=== PATIENT | male | born 1945 | race Caucasian/White ===

== ENCOUNTER → 2020-11-08 12:53 | Outpatient (BNVA) | payer OTHER, SELFPAY | PROVIDERS: PCP Internal Medicine; Visit Provider Urology | DX: R33.9 Retention of urine, unspecified (principal); N40.0 Benign prostatic hyperplasia without lower urinary tract symptoms | CPT/HCPCS: 51798; 81002; 99212 ==

== ENCOUNTER 2021-04-16 13:44 | Outpatient (REF) | payer OTHER, SELFPAY ==
--- NOTE | ~2021-04-16 | US_ITS ---
EXAMINATION: US EXTRACRANIAL CAROTID DUPLEX, BILATERAL CLINICAL INFORMATION: Bilateral carotid bruit. COMPARISON: Carotid ultrasound 11/24/2019 TECHNIQUE: Real-time ultrasound and Doppler techniques (integrating B-mode 2-D vascular images, Doppler spectral analysis and color-flow Doppler imaging) were utilized to interrogate the extracranial carotid arteries, the vertebral arteries and proximal subclavian arteries bilaterally. The degree of stenosis is determined by criteria similar to NASCET. FINDINGS: Right Side: 1. There is echogenic atherosclerotic plaque seen in the bifurcation/proximal ICA region. 2. The common carotid artery PSV proximally is 73 cm/s and distally 66 cm/s. 3. The proximal internal carotid artery velocities are 185 cm/s systolic and 67 cm/s diastolic. 4. The proximal external carotid artery PSV is 118 cm/s. 5. The vertebral artery shows 83 flow. 6. The subclavian artery waveforms are normal. Left Side: 1. There is echogenic atherosclerotic plaque seen in the bifurcation/proximal ICA region. 2. The common carotid artery PSV proximally is 105 cm/s and distally 99 cm/s. 3. The proximal internal carotid artery velocities are 90 cm/s systolic and 26 cm/s diastolic. 4. The proximal external carotid artery PSV is 78 cm/s. 5. The vertebral artery shows antegrade flow. 6. The subclavian artery waveforms are normal. US/US carotid duplex BI IMPRESSION: 1. RIGHT: Moderate, hemodynamically significant stenosis of the proximal right internal carotid artery corresponding to a 50-79% stenosis by velocity criteria. 2. LEFT: Minimal, non-hemodynamically significant stenosis of the proximal left internal carotid artery corresponding to a 0-49% stenosis by velocity criteria. 3. There is no change in the category severity of disease when compared to the previous study dated 11/24/2019.
== END 2021-04-16 13:45 | disposition home or self-care (01) ==
LOC: HO.US 13:44
PROVIDERS: Visit Provider Surgery Vascular Surgery
DX: I63.233 Cerebral infarction due to unspecified occlusion or stenosis of bilateral carotid arteries (principal)
CPT/HCPCS: 93880

== ENCOUNTER → 2021-04-24 12:59 | Outpatient (BNVA) | payer OTHER, SELFPAY | PROVIDERS: PCP Internal Medicine; Visit Provider Surgery Vascular Surgery | DX: I65.23 Occlusion and stenosis of bilateral carotid arteries (principal); I73.9 Peripheral vascular disease, unspecified | CPT/HCPCS: 99212 ==

== ENCOUNTER 2021-04-26 16:21 | Outpatient (REF) | payer OTHER, SELFPAY ==
--- NOTE | ~2021-04-26 | MR_ITS ---
EXAMINATION: MR BRAIN WITHOUT CONTRAST CLINICAL INFORMATION: Parkinson's disease. Headaches. Numbness in feet. COMPARISON: None. TECHNIQUE: Multiplanar, multisequence imaging of the brain was performed without contrast. FINDINGS: No diffusion abnormalities are identified to suggest an acute infarct. The ventricles are normal in size. No mass effect or midline shift is seen. Minimal scattered white matter signal changes noted. No extra-axial fluid collections are seen. The brainstem is normal. Small lacunar infarct in the left cerebellar hemisphere. The gradient refocused acquisition is normal. Mild generalized parenchymal volume loss noted. The craniovertebral junction, marrow signal, and midline structures are normal. The major intracranial flow voids at the level of the enterprise of [place] are preserved. The dural venous sinus flow voids are maintained. Fluid present in the mastoid air cells bilaterally and in the left middle ear cavity. The nasopharyngeal soft tissues appear normal. There is mild patchy mucosal thickening in the maxillary ethmoid sinuses. MR/MR head/brain wo con IMPRESSION: No acute process. Very mild scattered white matter signal changes which may be due to chronic microangiopathy. Mild generalized parenchymal volume loss.
== END 2021-04-26 16:22 | disposition home or self-care (01) ==
LOC: HO.MRI 16:21
PROVIDERS: Visit Provider Psychiatry & Neurology Neurology
DX: G20 Parkinson's disease (principal)
CPT/HCPCS: 70551

== ENCOUNTER 2021-06-11 13:58 | Outpatient (REF) | payer OTHER, SELFPAY ==
--- NOTE | ~2021-06-11 | US_ITS ---
EXAMINATION: ANKLE-BRACHIAL INDICES SINGLE LEVEL PULSE VOLUME RECORDING ARTERIAL DUPLEX BILATERAL LEGS CLINICAL INFORMATION: Peripheral vascular disease COMPARISON: 03/22/2020. TECHNIQUE: Ankle-brachial indices and PVR at the ankle were obtained. Duplex Doppler of the bilateral lower extremity arterial systems was performed. FINDINGS: RIGHT: Ankle-brachial index: 0.81 PVR: Blunted Moderate plaque in the common femoral artery at the bifurcation. Mild plaque otherwise. Common femoral: PSV 594 cm/s. Biphasic waveform. Deep femoral: PSV 449 cm/s. Biphasic waveform. Proximal superficial femoral: PSV 104 cm/s. Biphasic waveform. Mid superficial femoral: PSV 81 cm/s. Biphasic waveform. Distal superficial femoral: PSV 112 cm/s. Triphasic waveform. Popliteal: PSV 105 cm/s. Triphasic waveform. Posterior tibial artery: PSV 70 cm/s. Triphasic waveform. LEFT: Ankle-brachial index: 0.88 PVR: Blunted Mild plaque throughout. Common femoral: PSV 158 cm/s. Triphasic waveform. Deep femoral: PSV 129 cm/s. Biphasic waveform. Proximal superficial femoral: PSV 97 cm/s. Biphasic waveform. Mid superficial femoral: PSV 115 cm/s. Biphasic waveform. Distal superficial femoral: PSV 118 cm/s. Biphasic waveform. Popliteal: PSV 120 cm/s. Biphasic waveform. Posterior tibial artery: PSV 60 cm/s. Biphasic waveform. US/US arterial duplex LE BI IMPRESSION: Right: Mild peripheral arterial disease by DENISE and PVR (previous DENISE normal). High-grade stenosis of the distal common femoral artery involving the origin of the deep femoral artery. Likely good collateralization with triphasic waveforms in the distal SFA and runoff. Left: Mild peripheral arterial disease by DENISE and PVR (previous DENISE was normal). No hemodynamically significant focal stenosis.
--- NOTE | ~2021-06-11 | US_ITS ---
EXAMINATION: ANKLE-BRACHIAL INDICES SINGLE LEVEL PULSE VOLUME RECORDING ARTERIAL DUPLEX BILATERAL LEGS CLINICAL INFORMATION: Peripheral vascular disease COMPARISON: 03/22/2020. TECHNIQUE: Ankle-brachial indices and PVR at the ankle were obtained. Duplex Doppler of the bilateral lower extremity arterial systems was performed. FINDINGS: RIGHT: Ankle-brachial index: 0.81 PVR: Blunted Moderate plaque in the common femoral artery at the bifurcation. Mild plaque otherwise. Common femoral: PSV 594 cm/s. Biphasic waveform. Deep femoral: PSV 449 cm/s. Biphasic waveform. Proximal superficial femoral: PSV 104 cm/s. Biphasic waveform. Mid superficial femoral: PSV 81 cm/s. Biphasic waveform. Distal superficial femoral: PSV 112 cm/s. Triphasic waveform. Popliteal: PSV 105 cm/s. Triphasic waveform. Posterior tibial artery: PSV 70 cm/s. Triphasic waveform. LEFT: Ankle-brachial index: 0.88 PVR: Blunted Mild plaque throughout. Common femoral: PSV 158 cm/s. Triphasic waveform. Deep femoral: PSV 129 cm/s. Biphasic waveform. Proximal superficial femoral: PSV 97 cm/s. Biphasic waveform. Mid superficial femoral: PSV 115 cm/s. Biphasic waveform. Distal superficial femoral: PSV 118 cm/s. Biphasic waveform. Popliteal: PSV 120 cm/s. Biphasic waveform. Posterior tibial artery: PSV 60 cm/s. Biphasic waveform. US/US DENISE complete IMPRESSION: Right: Mild peripheral arterial disease by DENISE and PVR (previous DENISE normal). High-grade stenosis of the distal common femoral artery involving the origin of the deep femoral artery. Likely good collateralization with triphasic waveforms in the distal SFA and runoff. Left: Mild peripheral arterial disease by DENISE and PVR (previous DENISE was normal). No hemodynamically significant focal stenosis.
== END 2021-06-11 13:59 | disposition home or self-care (01) ==
LOC: HO.US 13:58
PROVIDERS: PCP Internal Medicine; Visit Provider Surgery Vascular Surgery
DX: I73.9 Peripheral vascular disease, unspecified (principal)
CPT/HCPCS: 93923; 93925

== ENCOUNTER → 2021-07-10 10:31 | Outpatient (BNVA) | payer OTHER, SELFPAY | PROVIDERS: PCP Internal Medicine; Visit Provider Surgery Vascular Surgery | DX: I73.9 Peripheral vascular disease, unspecified (principal); I65.23 Occlusion and stenosis of bilateral carotid arteries; N40.0 Benign prostatic hyperplasia without lower urinary tract symptoms; E11.9 Type 2 diabetes mellitus without complications; Z88.6 Allergy status to analgesic agent; Z87.891 Personal history of nicotine dependence | CPT/HCPCS: 99212 ==

== ENCOUNTER → 2021-11-09 14:15 | Outpatient (BNVA) | payer OTHER, SELFPAY | PROVIDERS: PCP Internal Medicine; Visit Provider Urology | DX: N40.0 Benign prostatic hyperplasia without lower urinary tract symptoms (principal) | CPT/HCPCS: 51798; 99212 ==

== ENCOUNTER → 2021-12-27 11:53 | Outpatient (BNVA) | payer OTHER, SELFPAY | PROVIDERS: PCP Internal Medicine; Visit Provider Urology | DX: Z13.89 Encounter for screening for other disorder (principal) ==

== ENCOUNTER 2022-03-14 09:47 | Outpatient (REF) | payer OTHER, SELFPAY ==
--- NOTE | ~2022-03-14 | US_ITS ---
EXAMINATION: US EXTRACRANIAL CAROTID DUPLEX, BILATERAL CLINICAL INFORMATION: Occlusion and stenosis of the carotid arteries status post left carotid endarterectomy COMPARISON: Carotid duplex on 01/14/2021 TECHNIQUE: Real-time ultrasound and Doppler techniques (integrating B-mode 2-D vascular images, Doppler spectral analysis and color-flow Doppler imaging) were utilized to interrogate the extracranial carotid arteries, the vertebral arteries and proximal subclavian arteries bilaterally. The degree of stenosis is determined by criteria similar to NASCET. FINDINGS: Right Side: 1. There is moderate atherosclerotic plaque seen in the bifurcation/proximal ICA region. 2. The common carotid artery PSV proximally is 80 cm/s and distally 79 cm/s. 3. The proximal internal carotid artery velocities are 196 cm/s systolic and 60 cm/s diastolic. 4. The proximal external carotid artery PSV is 154 cm/s. 5. The vertebral artery shows antegrade flow. 6. The subclavian artery waveforms are normal. Left Side: 1. There is no significant atherosclerotic plaque seen in the bifurcation/proximal ICA region. Postsurgical changes. 2. The common carotid artery PSV proximally is 115 cm/s and distally 119 cm/s. 3. The proximal internal carotid artery velocities are 80 cm/s systolic and 26 cm/s diastolic. 4. The proximal external carotid artery PSV is 211 cm/s. 5. The vertebral artery shows antegrade flow. 6. The subclavian artery waveforms are normal. US/US carotid duplex BI IMPRESSION: 1. RIGHT: Moderate, hemodynamically significant stenosis of the proximal right internal carotid artery corresponding to a 50-79% stenosis by velocity criteria. 2. LEFT: Normal left internal carotid artery without atherosclerotic plaque or hemodynamically significant stenosis. Expected postsurgical changes from left carotid endarterectomy. 3. There is no change in the category severity of disease on the right when compared to the previous study dated 04/16/2021. Improvement on the left.
== END 2022-03-14 09:48 | disposition home or self-care (01) ==
LOC: HO.US 09:47
PROVIDERS: PCP Internal Medicine; Visit Provider Surgery Vascular Surgery
DX: I65.23 Occlusion and stenosis of bilateral carotid arteries (principal)
CPT/HCPCS: 93880

== ENCOUNTER → 2022-04-25 15:06 | Outpatient (BNVA) | payer OTHER, SELFPAY | PROVIDERS: PCP Internal Medicine; Visit Provider Surgery Vascular Surgery | DX: I65.23 Occlusion and stenosis of bilateral carotid arteries (principal) | CPT/HCPCS: 99212 ==

== ENCOUNTER → 2022-07-04 09:48 | Outpatient (BNVA) | payer OTHER, SELFPAY | PROVIDERS: PCP Internal Medicine; Visit Provider Urology | DX: N40.0 Benign prostatic hyperplasia without lower urinary tract symptoms (principal); N52.1 Erectile dysfunction due to diseases classified elsewhere; E11.69 Type 2 diabetes mellitus with other specified complication | CPT/HCPCS: 51798; 99212 ==

== ENCOUNTER 2022-12-25 11:24 | Outpatient (REF) | payer OTHER, SELFPAY ==
[2022-12-25 12:42] LABS: Prostate Specific Antigen 0.54 ng/mL (<0.05-4.0)
[2022-12-31 11:08] LABS: Testosterone, Total 490 ng/dL (250-1100)
== END 2022-12-25 11:25 | disposition home or self-care (01) ==
LOC: HO.LAB 11:24
PROVIDERS: PCP Internal Medicine; Visit Provider Urology
DX: E11.69 Type 2 diabetes mellitus with other specified complication (principal); N52.1 Erectile dysfunction due to diseases classified elsewhere; Z12.5 Encounter for screening for malignant neoplasm of prostate
CPT/HCPCS: 36415; 83002; 84153; 84403

== ENCOUNTER → 2023-01-07 11:23 | Outpatient (BNVA) | payer OTHER, SELFPAY | PROVIDERS: PCP Internal Medicine; Visit Provider Urology | DX: E11.69 Type 2 diabetes mellitus with other specified complication (principal); N52.1 Erectile dysfunction due to diseases classified elsewhere; N40.0 Benign prostatic hyperplasia without lower urinary tract symptoms | CPT/HCPCS: 99212 ==

== ENCOUNTER 2023-04-10 08:30 | Outpatient (REF) | payer OTHER, SELFPAY ==
--- NOTE | ~2023-04-10 | FL_ITS ---
EXAMINATION: XR FLUOROSCOPY ESOPHAGRAM WITH AIR CLINICAL INFORMATION: Patient complaining of cough upon swallowing both liquids and solids. COMPARISON: 05/11/2019. TECHNIQUE: Esophagram was performed utilizing standard air-contrast technique with both thick and thin barium and effervescent granules. Numerous spot fluoroscopic images were obtained. FINDINGS: Oral pharyngeal phase and hypopharyngeal phase of swallow demonstrated no evidence of aspiration or laryngeal penetration. There was adequate small palpable elevation and epiglottic movement. There is a small posterior Zenker's diverticulum again noted with mild cricopharyngeal achalasia. This is unchanged. The esophagus is normal in caliber and contour. No masses or mucosal abnormalities identified. There was fairly extensive tertiary contractions following the primary peristaltic wave, consistent with presbyesophagus. There is a small hiatus hernia at the GE junction. There was mild GE reflux noted during the examination. Limited images of the stomach demonstrated some fold thickening in the distal gastric antrum, which did eventually distend with contrast and air. This could be consistent with mild gastritis. There appears to be a focal ulceration (series 5, image 17) within the antrum, possibly related to peptic disease. FLUOROSCOPY TIME: 3.9 minutes 49 spot images obtained. DOSE AREA PRODUCT: 34.816 uGy-m2 (microgray-meter squared) FL/FL barium swallow with air IMPRESSION: 1. Small Zenker's diverticulum. Otherwise grossly normal hypopharyngeal phase of swallow. No aspiration or laryngeal penetration.Mild cricopharyngeal achalasia. 2. Small hiatus hernia and mild episodic gastroesophageal reflux. 3.. Presbyesophagus with nonpropulsive tertiary contractions. Esophagus otherwise normal. 4. Mild fold thickening identified in the distal antrum, possibly technical in nature although gastritis is also a consideration. Suggestion of a focal gastric antral ulceration. As a precaution, endoscopy may be of benefit to evaluate this region more fully.
== END 2023-04-10 08:31 | disposition home or self-care (01) ==
LOC: HO.XRAY 08:30
PROVIDERS: PCP Internal Medicine; Visit Provider Internal Medicine Gastroenterology
DX: R13.12 Dysphagia, oropharyngeal phase (principal)
CPT/HCPCS: 74221

== ENCOUNTER → 2023-04-10 08:33 | Outpatient (BNV) | payer OTHER, SELFPAY | PROVIDERS: PCP Internal Medicine; Visit Provider Radiology Diagnostic Radiology | DX: R13.10 Dysphagia, unspecified (principal) | CPT/HCPCS: 74221 ==

== ENCOUNTER 2023-05-23 10:44 | Day surgery (SDC) | payer OTHER, SELFPAY ==
[2023-05-23 06:10] VITALS: BMI 28.9
--- NOTE | 2023-05-23 11:05 | HO.ANESPROP2 ---
HPI - Anesthesia Eval Consult details Narrative: 77 yo male patient for EGD with balloon dilatation PMFSH Active Problems Active Problems: All Active Problems (Updated 05/23/23 @ 11:06 by Eunice Jacob MD) Erectile dysfunction associated with type 2 diabetes mellitus (Acute) PAD (peripheral artery disease) (Acute) Bilateral carotid artery stenosis (Acute) Incomplete emptying of bladder (Acute) BPH (benign prostatic hyperplasia) (Acute) Parkinsonism Intention tremor Past Medical History Medical History Chronic kidney disease (CKD), stage III (moderate) Obesity Orthostatic hypotension Parkinsons disease COPD (chronic obstructive pulmonary disease) Carotid arterial disease Osteoarthritis Sleep apnea HLD (hyperlipidemia) GERD (gastroesophageal reflux disease) Heart attack CAD (coronary artery disease) Memory loss Diabetes mellitus, type II Nocturia Incomplete emptying of bladder BPH (benign prostatic hyperplasia) Family History Family History Father CVD (cardiovascular disease) Mother Lung cancer Son Testicular cancer Family history of problems with anesthesia: No Surgical History Surgical History (Updated 05/23/23 @ 11:42 by Eunice Jacob MD) Coronary angioplasty status Hx of cardiac cath H/O endarterectomy History of Problems with Anesthesia: No Social History Social History Patient Tobacco Use Status: Former Tobacco user Quit Date: 2018 Are you DNR?: No Advance Directives: No Advance Directives Information Provided: Yes Nutrition Risks: No Nutritional Risk Meds Allergies Allergy/AdvReac Type Severity Reaction Status Date / Time gabapentin AdvReac Loss Verified 05/23/23 10:48 mucsle control Active Medications: Current Medications Lactated Ringer's (Lr) 1,000 mls @ 50 mls/hr IVCONT .Q20H [facility] Home Medications Medication Instructions Recorded Confirmed Last Taken Type alirocumab 75 mg/mL subcutaneous 75 mg subcut Q2W 11/08/20 05/22/23 Unknown History pen injector (Praluent Pen) aspirin 81 mg tablet,delayed 81 mg PO DAILY 11/08/20 05/22/23 Unknown History release (Adult Low Dose Aspirin) atorvastatin 80 mg tablet 80 mg PO DAILY 11/08/20 05/23/23 Unknown History metformin 500 mg tablet 500 mg PO DAILY 11/08/20 05/22/23 Unknown History cholecalciferol (vitamin D3) 10 10 mcg PO DAILY 07/10/21 05/23/23 Unknown History mcg (400 unit) capsule metoprolol succinate 25 mg 25 mg PO DAILY 07/10/21 05/22/23 Unknown History tablet,extended release 24 hr vitamin B complex (B 1 tab PO DAILY 07/10/21 05/22/23 Unknown History Complex-Vitamin B12 tablet) acetaminophen 325 mg tablet PO 05/22/23 Unknown History amitriptyline 10 mg PO DAILY 05/22/23 05/22/23 Unknown History Exam Exam Date and Time: May 23, 2023 1105 Height,Weight and Vital Signs: Height 5 ft 6 in Weight 81.193 kg Vital Signs Temp Pulse Resp BP Pulse Ox O2 Del Method 05/23/23 11:10 98.0 F 76 18 136/64 99 Room Air Pertinent Lab Results Pertinent Lab Results: Lab Results 05/23/23 Range/Units 11:07 POC Glucose 131 H (60-115) mg/dL Airway Mallampati Class: II TM Dist: >3cm Neck ROM: Full Denture: Upper and Lower Heart: RRR Lungs: CTAB Assessment and Plan Assessment Anesthesia Assessment: Anesthesia Plan Discussed and Chart Reviewed Final Anesthetic Review Family History of Problems with Anesthesia: No History of Problems with Anesthesia: No NPO: Yes ASA Class: III Final Preanesthetic Review: No Changes in Pt Med Stat, Meds/Allgs Chart Reviewed, Consent Obtained/Reviewed and Anes Risks/Benef Reviewed Patient Risk: Intermediate Procedure Risk: Low Assessment/Block/Sedation in SS: Assess/Block/Sedation-SS Anesthetic Plan Anesthetic Plan: MAC: Disposition: Standard PACU
[2023-05-23] MEDS: Lactated Ringers 1,000 ML 50 ML IVCONT (11:09)
[2023-05-23 11:10] VITALS: BP 136/64; PULSE 76; RESP 18; TEMP 36.7; O2SAT 99
[2023-05-23 11:12] LABS: Glucose, Whole Blood 131 mg/dL (60-115)
--- NOTE | 2023-05-23 11:41 | MHC.SHP ---
Pre-Procedural Eval Section A Date of Service: 05/23/23 Section B Chief Complaint: Dysphagia, unspecified, Abnormal findings on diagn Details of Present Illness: see H&P no changes Relevant Family History (Specify if Yes): No Relevant Social History: None Present Medications: see Short Stay Collaborative assessment Medical History: No relevant PMH History of Previous Operations: No relevant previous surgery Allergies: Allergies Allergy/AdvReac Type Severity Reaction Status Date / Time gabapentin AdvReac Loss Verified 05/23/23 10:48 mucsle control Plan I have reviewed the history and physical and performed a pertinent physical examination on my patient. No changes have occurred unless specified. Time Spent With Patient Time: Total time managing care of this patient today ____ minutes.
--- NOTE | 2023-05-23 11:46 | PC.NURSE ---
one IV attempt and one insertion. pressure dressing applied to attempt area. small bruise noted approx. size dime. insertion completed by gaston alaniz rn.
[2023-05-23 12:10] VITALS: BP 95/43; PULSE 73; RESP 16; TEMP 36.6; O2SAT 99
--- NOTE | 2023-05-23 12:11 | PM.OP ---
Brief Operative Note Date of Service: 05/23/23 Pre-op diagnosis: dysphagia abnl ugi Post-op diagnosis: same Surgeon: Andreas Kuhn Anesthesia: MAC Was an Capacitor Repairer used for this Procedure?: No Estimated blood loss (mL): 2 Pathology: other Condition: stable Disposition: PACU
[2023-05-23 12:25] VITALS: BP 85/55; PULSE 67; RESP 16; TEMP 36.6; O2SAT 97
[2023-05-23 12:30] VITALS: BP 97/49; PULSE 71; RESP 16; O2SAT 96
[2023-05-23 12:35] VITALS: BP 108/46; PULSE 70; RESP 16; O2SAT 96
[2023-05-23 12:44] VITALS: BP 111/79; PULSE 74; RESP 20; TEMP 36.4; O2SAT 98
--- NOTE | 2023-05-23 13:00 | OP_ITS ---
DATE OF SERVICE: 05/23/2023 SURGEON: Andreas Kuhn MD INDICATIONS: 1. Dysphagia. 2. Abnormal barium swallow. PREOPERATIVE DIAGNOSIS: POSTOPERATIVE DIAGNOSIS: PROCEDURE PERFORMED: Upper endoscopy with balloon dilation of biopsy. ESTIMATED BLOOD LOSS: COMPLICATIONS: ANESTHESIA: Monitored anesthesia care. ASSISTANTS: SPECIMENS: DESCRIPTION OF PROCEDURE: A history and physical was performed. The risks and benefits of the procedure were explained to the patient. Informed consent was obtained. The patient was placed in the left lateral decubitus position. The Olympus video gastroscope was introduced into the esophagus, stomach, and duodenum. Examination was performed. The scope was removed. He tolerated the procedure well and was returned to the recovery area in stable condition. FINDINGS: Esophagus: There appeared to be a small Zenker diverticulum just at the level of the upper esophageal sphincter with some retained food. The esophagus was normal. The EG junction was slightly irregular. Biopsies were obtained from the EG junction. Stomach: The stomach showed no evidence of masses or ulcers. There was scattered erythema consistent with gastritis. Biopsies were obtained from the antrum. Duodenum: The bulb and 2nd portion were normal. Because of the patient's complaints of dysphagia and the findings of a hypertensive upper esophageal sphincter, balloon dilation of the upper esophageal sphincter was performed at 20 mm for 60 seconds with the balloon passed through the scope and inflated to its recommended pressure, then removed. IMPRESSION: 1. Gastritis. 2. Dysphagia. RECOMMENDATION: Follow up the biopsy results. MD PANTERA Carroll/KAYLENL / [id number]
== END 2023-05-23 13:07 | disposition home or self-care (01) ==
PROVIDERS: PCP Internal Medicine; Visit Provider Internal Medicine Gastroenterology
PROC: (CPT 43249; principal; 2023-05-23 11:50)
DX: R13.12 Dysphagia, oropharyngeal phase (principal); K22.5 Diverticulum of esophagus, acquired; K29.50 Unspecified chronic gastritis without bleeding; K31.A11 Gastric intestinal metaplasia without dysplasia, involving the antrum; K21.9 Gastro-esophageal reflux disease without esophagitis; I25.10 Atherosclerotic heart disease of native coronary artery without angina pectoris; Z95.5 Presence of coronary angioplasty implant and graft; I25.2 Old myocardial infarction; G47.33 Obstructive sleep apnea (adult) (pediatric); E78.5 Hyperlipidemia, unspecified; I73.9 Peripheral vascular disease, unspecified; E11.9 Type 2 diabetes mellitus without complications; Z79.82 Long term (current) use of aspirin; Z79.84 Long term (current) use of oral hypoglycemic drugs; Z79.899 Other long term (current) drug therapy; Z87.891 Personal history of nicotine dependence
CPT/HCPCS: 43249; 43239; 82947; 88305; 88342; C1726

== ENCOUNTER 2023-07-11 13:43 | Outpatient (AMB) | payer OTHER, SELFPAY ==
--- NOTE | 2023-07-11 13:46 | MHC.OFFVIS ---
Intake Intake Visit Reasons: 6m follow up/PVR Intake Note: Patient is Present for Follow Up PVR Urology Medication: Terazosin, Antibiotic Allergies: None Blood Thinners: Aspirin PVR: 0 Compliants: Patient states that the terazosin has helped a lot he does not get up as much during the night only one time. He wants to know if the dose can be increased. Allergies gabapentin Adverse Reaction (Verified 07/11/23 13:48) Loss mucsle control HPI HPI Comments History of Present Illness Details Xavi Hawkins is a very pleasant male. He is a patient of Dr. Reddy. He is in the following urologic conditions - Lower urinary tract symptoms - erectile dysfunction associated with diabetes Follow-up from daily tadalafil Good response Like to continue with daily tadalafil and terazosin Erectile dysfunction associated with diabetes No prior therapy Baseline testosterone Continue with daily tadalafil Labs - 01/14 T 490 LH 7.0 Lower Urinary Tract Symptoms: Background diabetes Current treatment includes medication, alpha daphne, terazosin 10 mg Prior treatments include procedure, TURP 1997. Prostate Symptom Score Mild (0-8), Bother 2. Symptoms include weak stream, nocturia (>2), and are stable. Results from testing include uroflow was performed Yes with a maximum flow rate (Q max) 2014 Prior Prostate Score mild. PSA PSA - July 2014 0.4 10/12 0.5, 01/14 0.5 Prostate volume 30-50gm. - prior procedures cystoscopy - October 2019 open. Prior TURP 1997 Treatment plan continue with current medications PFSH Medical History Chronic kidney disease (CKD), stage III (moderate) Obesity Orthostatic hypotension Parkinsons disease COPD (chronic obstructive pulmonary disease) Carotid arterial disease Osteoarthritis Sleep apnea HLD (hyperlipidemia) GERD (gastroesophageal reflux disease) Heart attack CAD (coronary artery disease) Memory loss Diabetes mellitus, type II Nocturia Incomplete emptying of bladder BPH (benign prostatic hyperplasia) Surgical History Coronary angioplasty status Hx of cardiac cath H/O endarterectomy Family History Father CVD (cardiovascular disease) Mother Lung cancer Son Testicular cancer Social History Patient Tobacco Use Status: Former Tobacco user Quit Date: 2019 Review of Systems Const Denies chills and Denies fever(s) Card Reports no additional complaints and Denies syncope Resp Denies cough GI Denies abdominal pain and Denies heartburn Reports as per HPI and Denies change in libido Neuro Denies syncope Psych Denies change in libido Endo Denies change in libido Physical Exam Const General: cooperative, healthy appearing, comfortable and no acute distress Orientation/consciousness: patient oriented x3 HEENT Face and sinus: Yes normal facial exam Mouth: moist mucous membranes Neck Neck: Yes normal visual inspection, Yes full ROM and Yes trachea midline Chest Chest palpation & inspection: normal inspection of the chest Resp Effort & Inspection: normal respiratory effort, able to speak in complete sentences and no respiratory distress GI Inspection: Yes normal to inspection Back/Spine/Pelvis Cervical Spine: normal cervical lordosis Thoracic/Lumbar Spine: thoracic and lumbar spine normal to inspection Skin General skin exam: no rashes or lesions noted Neuro General: patient oriented x3, gait normal, tone normal and moves all extremities Extrem General: Yes normal to inspection and Yes capillary refill normal Office Procedures Post Void Residual Post Residual Void Post Void Residual (PVR): 0 27473-[id number] Void Residual by ultrasound Results AMB Urinalysis, Automated UA Leukoctes 0 Angela/uL Last Edit by RAND Menchaca on 07/11/23 13:58 UA Nitrite Negative Last Edit by RAND Menchaca on 07/11/23 13:58 UA Urobilinogen 0.2 mg/dL Last Edit by RAND Menchaca on 07/11/23 13:58 UA Protein 15 mg/dL Last Edit by RAND Menchaca on 07/11/23 13:58 UA pH 6.0 Last Edit by RAND Menchaca on 07/11/23 13:58 UA Blood 0 Salomon/uL Last Edit by RAND Menchaca on 07/11/23 13:58 UA Specific [place] 1.015 Last Edit by RAND Menchaca on 07/11/23 13:58 UA Ketone Negative Last Edit by RAND Menchaca on 07/11/23 13:58 UA Bilirubin 0 mg/dL Last Edit by RAND Menchaca on 07/11/23 13:58 UA Glucose 0 mg/dL Last Edit by RAND Menchaca on 07/11/23 13:58 Results Reviewed Results Reviewed: Laboratory Last Values Urine pH (Auto) 6.0 07/11/23 13:49 Specific [place] (Auto) 1.015 07/11/23 13:49 Urine Protein (Auto) 15 mg/dL 07/11/23 13:49 Glucose (UA)(Auto) 0 mg/dL 07/11/23 13:49 Urine Ketones (Auto) Negative 07/11/23 13:49 Urine Blood (Auto) 0 Salomon/uL 07/11/23 13:49 Urine Nitrite (Auto) Negative 07/11/23 13:49 Urine Bilirubin (Auto) 0 mg/dL 07/11/23 13:49 Urine Urobilinogen (Auto) 0.2 mg/dL 07/11/23 13:49 Leukocyte Esterase (Auto) 0 Angela/uL 07/11/23 13:49 Assessment & Plan Assessment & Plan (1) Erectile dysfunction associated with type 2 diabetes mellitus: Code(s): E11.69 - Type 2 diabetes mellitus with other specified complication; N52.1 - Erectile dysfunction due to diseases classified elsewhere (2) BPH (benign prostatic hyperplasia): Code(s): N40.0 - Benign prostatic hyperplasia without lower urinary tract symptoms Qualifiers: Lower urinary tract symptom presence: symptoms present Lower urinary tract symptom detail: urinary frequency Qualified Code(s): N40.1 - Benign prostatic hyperplasia with lower urinary tract symptoms; R35.0 - Frequency of micturition Plan Continue addressing lower urinary tract symptoms and erectile dysfunction with daily tadalafil Orders: Orders AMB Urinalysis Automated 07/11/23 Z13.9 - Encounter for screening, unspecified AMB Post Void Residual by ultrasound 07/11/23 R33.9 - Retention of urine, unspecified Patient Instructions: Imaging studies, laboratory and physical exam results were discussed and reviewed in detail. No major barriers to patient understanding were identified. An opportunity to ask questions regarding the treatment plan was provided. All questions were answered. The patient expressed understanding and agreement with the above treatment plan. The patient is aware they should contact our office by phone for worsening of their current condition or the appearance of new urologic symptoms. Compliance is encouraged with any medications and followup testing that is ordered. It is a privilege to participate in the urologic care of your patient. If you have any questions or concerns regarding treatment for the above conditions, or other urologic issues, please do not hesitate to contact me. The office telephone contact is [phone]. This note is constructed using voice recognition software. While every effort has been made to ensure accuracy note keeper errors may have been included. Yours sincerely, Dr Ayden Lee MD, [facility] - Urology Providers of Expert, Compassionate Care for the Genitourinary System Coding Level of Care Code Est Pt Level 4 (50297) Diagnoses Erectile dysfunction associated with type 2 diabetes mellitus E11.69; N52.1 Benign prostatic hyperplasia with urinary frequency N40.1; R35.0 Lower urinary tract symptom presence: symptoms present Lower urinary tract symptom detail: urinary frequency CPT Codes Post Residual Void - PVR CPT Code: 29103-Dnep Void Residual by ultrasound ([id number])
== END 2023-07-11 14:23 | disposition home or self-care (01) ==
PROVIDERS: PCP Internal Medicine; Referring Provider Internal Medicine; Visit Provider Urology
DX: E11.69 Type 2 diabetes mellitus with other specified complication (principal); N52.1 Erectile dysfunction due to diseases classified elsewhere; N40.1 Benign prostatic hyperplasia with lower urinary tract symptoms; R35.0 Frequency of micturition
CPT/HCPCS: 99213

== ENCOUNTER → 2023-07-11 13:43 | Outpatient (BNVA) | payer OTHER, SELFPAY | PROVIDERS: Visit Provider Urology | DX: N40.1 Benign prostatic hyperplasia with lower urinary tract symptoms (principal); R35.0 Frequency of micturition; E11.69 Type 2 diabetes mellitus with other specified complication; N52.1 Erectile dysfunction due to diseases classified elsewhere | CPT/HCPCS: 51798; 81003; 99212 ==

== ENCOUNTER 2024-02-24 15:26 | Outpatient (AMB) | payer OTHER, SELFPAY ==
--- NOTE | 2024-02-24 15:29 | MHC.OFFVIS ---
Intake Visit Reasons: 6m follow up Intake Note: Patient is Present for Telephone Follow Up Urology Med: Alfuzosin, Antibiotic Allergy:None Blood Thinner:n Aspirin Allergies gabapentin Adverse Reaction (Verified 07/11/23 13:48) Loss mucsle control HPI Comments Details: Xavi Hawkins is a very pleasant male. He is a patient of Dr. Reddy. He is in the following urologic conditions - Lower urinary tract symptoms - erectile dysfunction associated with diabetes Telemedicine Evaluation 15 min Consultation [employer] Video attempted Continues with alfuzosin with good effect Erectile dysfunction associated with diabetes No prior therapy Baseline testosterone Leann of old now Labs - 01/14 T 490 LH 7.0 Lower Urinary Tract Symptoms: Background diabetes Current treatment includes medication, alpha daphne, terazosin 10 mg Prior treatments include procedure, TURP 1997. Prostate Symptom Score Mild (0-8), Bother 2. Symptoms include weak stream, nocturia (>2), and are stable. Results from testing include uroflow was performed Yes with a maximum flow rate (Q max) 2014 Prior Prostate Score mild. PSA PSA - July 2014 0.4 10/12 0.5, 01/14 0.5 Prostate volume 30-50gm. - prior procedures cystoscopy - October 2019 open. Prior TURP 1997 Treatment plan continue with current medications PFSH Medical History Chronic kidney disease (CKD), stage III (moderate) Obesity Orthostatic hypotension Parkinsons disease COPD (chronic obstructive pulmonary disease) Carotid arterial disease Osteoarthritis Sleep apnea HLD (hyperlipidemia) GERD (gastroesophageal reflux disease) Heart attack CAD (coronary artery disease) Memory loss Diabetes mellitus, type II Nocturia Incomplete emptying of bladder BPH (benign prostatic hyperplasia) Surgical History Coronary angioplasty status Hx of cardiac cath H/O endarterectomy Family History Father CVD (cardiovascular disease) Mother Lung cancer Son Testicular cancer Social History Patient Tobacco Use Status: Former Tobacco user Review of Systems Const All systems reviewed & are unremarkable except as noted in HPI and below Reports no additional complaints Resp Reports no additional complaints GI Reports no additional complaints Reports as per HPI Musc Reports no additional complaints Physical Exam Telemedicine evaluation Appropriate responses Regular breathing rate and rhythm HEENT Head: Yes normal to inspection Ears: hearing grossly normal bilaterally Eyes General: appearance normal, both eyes and all related structures Neck Neck: Yes normal visual inspection Chest Chest palpation & inspection: normal inspection of the chest Resp Effort & Inspection: normal respiratory effort and able to speak in complete sentences Telehealth Telehealth Telehealth Platform: [email or web address] Location of provider rendering services: practice address Location of patient: address on file Patient Identification confirmed using: Name, : Yes Telehealth method: video Patient verbally consented to treatment: Yes Patient verbally consented to billing insurance company: Yes Patient informed of any privacy concerns related to visit: Yes Minutes spent on Phone/Video with Pt.: 15 Assessment & Plan Assessment & Plan (1) Erectile dysfunction associated with type 2 diabetes mellitus: Code(s): E11.69 - Type 2 diabetes mellitus with other specified complication; N52.1 - Erectile dysfunction due to diseases classified elsewhere Category: Medical (2) BPH (benign prostatic hyperplasia): Code(s): N40.0 - Benign prostatic hyperplasia without lower urinary tract symptoms Category: Medical Qualifiers: Lower urinary tract symptom presence: symptoms present Lower urinary tract symptom detail: urinary frequency Qualified Code(s): N40.1 - Benign prostatic hyperplasia with lower urinary tract symptoms; R35.0 - Frequency of micturition Plan Twelve month follow-up office Patient Instructions: Imaging studies, laboratory and physical exam results were discussed and reviewed in detail. No major barriers to patient understanding were identified. An opportunity to ask questions regarding the treatment plan was provided. All questions were answered. The patient expressed understanding and agreement with the above treatment plan. The patient is aware they should contact our office by phone for worsening of their current condition or the appearance of new urologic symptoms. Compliance is encouraged with any medications and followup testing that is ordered. It is a privilege to participate in the urologic care of your patient. If you have any questions or concerns regarding treatment for the above conditions, or other urologic issues, please do not hesitate to contact me. The office telephone contact is [phone]. This note is constructed using voice recognition software. While every effort has been made to ensure accuracy retail shift manager errors may have been included. Yours sincerely, Dr Ayden Lee MD, [facility] - Urology Providers of Expert, Compassionate Care for the Genitourinary System Coding Level of Care Code Tele Est Pt Level 4 (54601) Complex EM visit Add On G2211 Diagnoses Erectile dysfunction associated with type 2 diabetes mellitus E11.69; N52.1 Benign prostatic hyperplasia with urinary frequency N40.1; R35.0 Lower urinary tract symptom presence: symptoms present Lower urinary tract symptom detail: urinary frequency
== END 2024-02-24 16:05 | disposition home or self-care (01) ==
LOC: HO.HUSH 15:26
PROVIDERS: PCP Internal Medicine; Visit Provider Urology
DX: E11.69 Type 2 diabetes mellitus with other specified complication (principal); N52.1 Erectile dysfunction due to diseases classified elsewhere; N40.1 Benign prostatic hyperplasia with lower urinary tract symptoms; R35.0 Frequency of micturition
CPT/HCPCS: 99213; G2211

== ENCOUNTER → 2024-02-24 15:26 | Outpatient (BNVA) | payer OTHER, SELFPAY | PROVIDERS: PCP Internal Medicine; Visit Provider Urology ==